=== PATIENT | male | born 1950 | race Caucasian/White ===

== ENCOUNTER → 2016-07-13 | Outpatient (CLI) | payer OTHER ==
--- NOTE | 2016-07-13 14:02 | DI ---
HISTORY: Catheter placement and constipation. COMPARISON: None available. FINDINGS: There is a catheter projected over the right hemipelvis. There is moderate constipation. There is no free air identified. There is a wire project over the thoracoabdominal junction. IMPRESSION: 1. There is a catheter projected over the right hemipelvis. 2. Moderate constipation. 3. There is a wire project over the thoracoabdominal junction.
== END ==
LOC: RAD 13:12
PROVIDERS: ATTEND Internal Medicine Nephrology
DX: K59.00 Constipation, unspecified (principal); Z49.02 Encounter for fitting and adjustment of peritoneal dialysis catheter
CPT/HCPCS: 74000

== ENCOUNTER → 2016-11-26 | Outpatient (CLI) | payer OTHER ==
[2016-11-26 16:10] LABS: HEMATOCRIT 35.9 % (42.0-52.0); HEMOGLOBIN 12.3 g/dL (14.0-18.0); MEAN CORPUSCULAR HGB CONC 34.3 g/dL (33-37); MEAN CORPUSCULAR VOLUME 84.7 FL (80-90); RED BLOOD COUNT 4.24 10^6/uL (4.70-6.10)
[2016-11-26 16:24] LABS: BUN/CREATININE RATIO 6.03 (6-20); CALCIUM 9.9 mg/dL (8.7-10.7); SERUM ALBUMIN 4.1 g/dL (3.5-4.8)
--- NOTE | 2016-11-26 17:58 | DI ---
XR CXR 2VW PA/LAT,11/26/2016 2:42 PM: Clinical History: Abnormal lung sounds. Previous Exam: November 18, 2012 Findings: PA and lateral views of the chest are obtained, and demonstrate clear lungs. The cardiomediastinum an d bony thorax are unremarkable except for sternotomy wires. There is no infiltrate nor effusion. Impression: No acute cardiopulmonary disease.
== END ==
LOC: MOB RAD 14:44
PROVIDERS: ATTEND Family Medicine
DX: R09.89 Other specified symptoms and signs involving the circulatory and respiratory systems (principal); R05 Cough; N18.6 End stage renal disease; R53.1 Weakness; E03.9 Hypothyroidism, unspecified
CPT/HCPCS: 36415; 71020; 80053; 84443; 85027

== ENCOUNTER → 2017-01-08 | Outpatient (CLI) | payer OTHER ==
[2017-01-08 10:24] LABS: BUN/CREATININE RATIO 7.5 (6-20); SERUM ALBUMIN 4.1 g/dL (3.5-4.8)
== END ==
LOC: MOB LAB 09:46
PROVIDERS: ATTEND Family Medicine
DX: N18.6 End stage renal disease (principal); Z99.2 Dependence on renal dialysis
CPT/HCPCS: 36415; 80053

== ENCOUNTER 2017-01-10 12:15 | Emergency (ER) | payer OTHER ==
[2017-01-10] MEDS ORDERED: NORMAL SALINE 10 ML SYRINGE FLUSH IVP PRN (12:34)
[2017-01-10] MEDS ORDERED: Sodium Chloride 0.9% 1,000 ML PRIMARY IV ONE (12:34)
--- NOTE | 2017-01-10 13:17 | EKG ---
[address] [address] Measurements Intervals [place] Rate: 57 P: 130 ID: [id number] QRS: -13 QRSD: 92 T: 150 QT: 445 QTc: 439 Interpretive Statements SINUS BRADYCARDIA, POSSIBLE ECTOPIC ATRIAL RHYTHM POSSIBLE LATERAL MYOCARDIAL INFARCTION OF INDETERMINATE AGE PRIOR ANTEROSEPTAL CO LEFT ATRIAL ENLARGEMENT Compared to ECG 11/19/2012 05:07:34 Sinus rhythm no longer present Myocardial infarct finding still present Electronically Signed On 01-12-17 15:26:17 MDT by Gabriel Everett [email or web address]
[2017-01-10 13:30] VITALS: RESP 18; TEMP 97.4
[2017-01-10 13:34] LABS: BASOPHILS # (AUTO) 0.03 10*3/UL; BASOPHILS % (AUTO) 0.5 % (0-1); EOSINOPHILS # (AUTO) 0.14 10*3/UL; EOSINOPHILS % (AUTO) 2.2 % (0-8); HEMOGLOBIN 11.4 g/dL (14.0-18.0); MEAN CORPUSCULAR HEMOGLOBIN 29.5 PG (27-31); MEAN CORPUSCULAR HGB CONC 34.5 g/dL (33-37); MEAN CORPUSCULAR VOLUME 85.3 FL (80-90); MEAN PLATELET VOLUME 10.2 FL (7.4-12.2); MONOCYTES # (AUTO) 0.41 10*3/UL (0.3-0.8); MONOCYTES % (AUTO) 6.3 % (5-15); NEUTROPHILS # (AUTO) 5.11 10*3/UL; NEUTROPHILS % (AUTO) 78.5 % (50-80); RED BLOOD COUNT 3.87 10^6/uL (4.70-6.10)
[2017-01-10 13:38] LABS: PLATELET MORPHOLOGY COMMENT NORMAL MORPHOLOGY (NORM); RBC MORPHOLOGY COMMENT NORMAL MORPHOLOGY (NORM); WBC MORPHOLOGY COMMENT NORMAL MORPHOLOGY (NORM)
[2017-01-10 13:48] LABS: BUN/CREATININE RATIO 8.24 (6-20); C-REACTIVE PROTEIN 0.5 mg/dL (0.0-0.9); CALCIUM 8.5 mg/dL (8.7-10.7); MAGNESIUM 2.3 mg/dL (1.6-2.4); SERUM ALBUMIN 3.6 g/dL (3.5-4.8)
[2017-01-10 13:51] LABS: VENOUS PH 7.39 (7.32-7.42)
[2017-01-10 13:55] LABS: SALICYLATE < 1.0 mg/dl (0-20)
--- NOTE | 2017-01-10 13:55 | PDOC ---
General Adult HPI - General Chief Complaint: General Medical Stated Complaint: SLEEPY LAST 2 DAYS Date Seen by Provider: 01/10/17 Time Seen by Provider: 13:10 Source: POSITIVE: Patient, Other () Exam Limitations: POSITIVE: No limitations Nurse's Notes Reviewed & Considered: Yes - History of Present Illness Initial Comment: The patient is a 66-year-old male who presents to the emergency department with increased sleepiness. Apparently for the past couple of days he states he has no energy and has been sleeping most of the time. His oral intake has also been diminished. He does have a history of chronic renal failure and is on peritoneal dialysis. In addition he does have a history of coronary artery disease and diabetes. He reports that his blood sugars have been running fairly normal. He did recently start on trazodone (possibly within the last week) which was started secondary to problems with insomnia. He denies any current headache, chest pain, numbness or focalized weakness in his extremities , urinary symptoms or any other associated complaints. He has not had any fevers or chills and denies any increased abdominal pain. He did have some blood work drawn 2 days ago and has not received the results of this yet. Have you received a tetanus shot in the past 10 years?: Yes - Patient Home Medications Home Medications: Home Medications Acetaminophen [Tylenol Extra Strength] 2 mg PO QHS tab 11/26/16 Amlodipine Besylate 1 tab PO DAILY tab 11/26/16 Calcitriol [Rocaltrol] 0.25 mcg PO 2XW cap 11/26/16 Calcium Carbonate [Tums] 1 tab PO QD tab 11/26/16 Glipizide [Glipizide Er] 2.5 mg PO QD tab 11/26/16 Levothyroxine Sodium 1 tab PO QAM tab 11/26/16 Losartan Potassium 1 tab PO QAM tab 11/26/16 Pravastatin Sodium [Pravachol] 1 tab PO DAILY tab 11/26/16 Sodium Bicarbonate 650 mg PO BID tab 11/26/16 Aspirin [Aspir 81] 81 mg PO DAILY 01/10/17 Clopidogrel [Plavix] 75 mg PO DAILY 01/10/17 Docusate Sodium 100 mg PO DAILY 01/10/17 Doxazosin Mesylate 2 mg PO DAILY 01/10/17 Furosemide 80 mg PO DAILY 01/10/17 Magnesium Oxide [Magnesium] 400 mg PO DAILY 01/10/17 Melatonin 5 mg PO DAILY 01/10/17 Polyethylene Glycol 3350 [Miralax] 255 gm PO DAILY 01/10/17 Ropinirole HCl [Requip] 0.25 mg PO DAILY 01/10/17 Sucroferric Oxyhydroxide [Velphoro] 500 mg PO DAILY 01/10/17 Trazodone HCl 50 mg PO DAILY 01/10/17 - Patient Allergies Allergies/Adverse Reactions: Allergies Allergy/AdvReac Type Severity Reaction Status Date / Time Penicillins Allergy Mild RASH Verified 01/10/17 12:24 Past Medical History - heen HEENT History: Denies History Cardiovascular History: Previous MT, Hyperlipidemia Respiratory History: Denies History Gastrointestinal History: Denies History Genitourinary History: Dialysis Additional Genitourinary History: AT HOME Endocrine History: Type 2 Diabetes (oral) Musculoskeletal History: Denies History Prosthesis or Implant: No Neurological History: Denies History Blood Disorders: Denies History Psychiatric History: Denies History History of Sexually Transmitted Diseases: No Cancer History: Denies History In Past Year Been Physically Harmed or Verbally Threatened: No History of MDRO: No History of Other Communicable Diseases: No Tobacco Use: Never Smoker Alcohol Use: None Substance Use Type: None Previous Surgical History: Yes Type / Date of Surgery: ING HERNIA, ohs, cataract, CABG, STENT, Anesthesia Reactions: No Significant Family History: No pertinent family hx Past Medical History Reviewed: Reviewed - No Changes ROS - Limitations ROS Limitations: No Limitations Constitution: DENIES: Chills, Fever Cardiovascular: DENIES: Chest Pain Respiratory: REPORTS: Shortness Of Breath (Chronic however worse with his current fatigue) Neurological: REPORTS: Confusion (He states he feels like he is processing things slower), Weakness (Generalized weakness, no focal weakness). DENIES: Headache, Numbness Gastrointestinal: DENIES: Abdominal Pain, Nausea, Vomitting, Diarrhea Musculoskeletal: DENIES: Lower Extremity Swelling, Muscle Aches Genitourinary: REPORTS: Denies Symptoms Eyes: REPORTS: Denies Symptoms ENT: REPORTS: Denies Symptoms Skin: DENIES: Rash General Adult Exam - General Appearance General Appearance: POSITIVE: Cooperative, No Acute Distress, Other (The patient is awake and answers questions appropriately, no acute distress) - HEENT HEENT: POSITIVE: Head Inspection Nml, Eyes Inspection Nml, Ears Inspection Nml, Pharynx Inspect. Nml, PERRL, EOMI, Dry Mucous Membranes - Neck Neck: POSITIVE: Normal Inspection. NEGATIVE: Lymphadenopathy - Respiratory Respiratory: POSITIVE: No Respiratory Distress, Breath Sounds Normal - Cardiovascular Cardiovascular: POSITIVE: Regular Rate & Rhythm, No Murmur Peripheral Pulses: Dorsalis-pedis (R): 2+, Dorsalis-pedis (L): 2+ - Abdomen Abdomen: Soft: (All Quadrants), Denies Tenderness: (All Quadrants), No Distention: (All Quadrants) - Skin Skin: POSITIVE: Normal Color, No Rash - Extremities Extremity: Normal ROM: (All Extremities), Normal Inspection: (All Extremities) - Neurological / Psychological Neurological: POSITIVE: Oriented X3, cable mechanic Normal As Tested, Motor Normal, Sensation Normal, Other (No focal neurologic deficits) General Adult Progress - Results Reviewed by me Xrays/CTs/US Reviewed by me: Yes Discussed with Radiologist: Yes Radiology Findings: CT scan of his head is normal per radiologist. Lab Results Reviewed: Yes Lab Results:: Laboratory Results 01/10/17 01/10/17 Range/Units 13:25 13:29 WBC 6.50 (4.8-10.8) 10^3/uL RBC 3.87 L (4.70-6.10) 10^6/uL Hgb 11.4 L (14.0-18.0) g/dL Hct 33.0 L (42.0-52.0) % MCV 85.3 (80-90) FL MCH 29.5 (27-31) PG MCHC 34.5 (33-37) g/dL RDW Std Deviation 45.1 (39-50) fL RDW Coeff of Kanwal 14.9 H (11.5-14.5) % Plt Count 189 (140-350) 10*3/uL MPV 10.2 (7.4-12.2) FL Immature Gran % (Auto) 0.2 (0-5) % Neut % (Auto) 78.5 (50-80) % Lymph % (Auto) 12.3 (10-50) % [place] % (Auto) 6.3 (5-15) % Eos % (Auto) 2.2 (0-8) % Baso % (Auto) 0.5 (0-1) % Immature Gran # (Auto) 0.01 10*3/UL Neut # (Auto) 5.11 10*3/UL Lymph # (Auto) 0.80 10*3/uL [place] # (Auto) 0.41 (0.3-0.8) 10*3/UL Eos # (Auto) 0.14 10*3/UL Baso # (Auto) 0.03 10*3/UL WBC Morphology Comment Normal morphology (NORM) Plt Morphology Comment Normal morphology (NORM) RBC Morph Comment Normal morphology (NORM) VBG pH 7.39 (7.32-7.42) VBG pCO2 37 L (45-55) mmHg VBG HCO3 23 (22-26) mmol/L VBG Base Excess -2 (-2-2) MMOL/L Sodium 133 L (135-145) meq/L Potassium 4.8 (3.8-5.2) meq/L Chloride 93 L (98-112) meq/L Carbon Dioxide 23 (23-33) meq/L Anion Gap 17 (5-20) BUN 89 H (7-22) mg/dL Creatinine 10.8 H (0.70-1.50) mg/dL Estimated GFR 5 (>60 ml/min/1.73m(2)) BUN/Creatinine Ratio 8.24 (6-20) Glucose 104 (78-110) mg/dL Calculated Osmolality 302.0 H (267-292) mOsm/kg Calcium 8.5 L (8.7-10.7) mg/dL Phosphorus 9.6 H (2.4-4.3) mg/dl Magnesium 2.3 (1.6-2.4) mg/dL Total Bilirubin 0.5 (0.3-1.2) mg/dL AST 8 L (21-57) IU/L ALT 28 (21-72) IU/L Alkaline Phosphatase 50 (38-126) IU/L Troponin I 0.014 (< 0.040) ng/mL C-Reactive Protein 0.5 (0.0-0.9) mg/dL Total Protein 5.9 L (6.1-8.0) g/dL Albumin 3.6 (3.5-4.8) g/dL Globulin 2.3 L (2.50-4.10) g/dL Albumin/Globulin Ratio 1.50 (1.3-2.0) mg/g Salicylates < 1.0 (0-20) mg/dl Acetaminophen < 10.0 (0-30) ug/mL Serum Alcohol < 10 (0-10) mg/dL EKG Interpreted/Reviewed By Me:: Yes EKG Interpretation:: POSITIVE: Normal Sinus Rhythm, Normal Rate, Normal QRS, Normal ST/T - Patient's Progress MDM / ED Course: The patient's vital signs were all stable on arrival. His head CT is normal per radiologist. His lab work reveals mild anemia, elevated creatinine at 10 which is his baseline recently, phosphorus is elevated at 9. The remainder of his blood work is essentially unremarkable. I did discuss the patient with Dr. Liu who is on-call for nephrology. He thought that the increased tiredness may be related to her recent initiation with trazodone. He recommended discontinuing of this medication. He stated his office would follow-up with the patient later this week. The patient is advised return to the emergency room if any worsening or change in symptoms. - Consult Counseled: POSITIVE: Patient, Family, RE: Lab Results, RE: Radiology Results, RE : DX, RE: Need for F/U Patient Care Time - Estimated PCT Patient Care Time (In Minutes): 35 Vital Signs - Recent Vital Signs Vital Signs: Vital Signs (Last 8 hours) Temp Pulse Resp BP Pulse Ox 01/10/17 13:09 97.4 F 63 18 109/76 94 - VS Reviewed Vital Signs Reviewed: Yes Discharge Clinical Impression: Fatigue, Chronic renal failure Discharge Disposition: Discharged to Home Condition: Stable Patient Instructions Given at Discharge: Fatigue (ED) Additional Instructions: Your blood work done today showed some mild anemia, the chronic renal failure with a creatinine of 10 which is similar to previous level, normal potassium with elevated phosphorus. There was no other obvious explanation for your current fatigue. I did discuss current findings with Dr. Liu. He thought that this most likely is being caused by the trazodone and recommended discontinuation. Recommend returning to the emergency room if he develops any worsening or change in symptoms. Dr. Liu's office will follow up with you this week. Follow Up With: CASSIA MUNGUIA [Primary Care Provider] -
--- NOTE | 2017-01-10 14:11 | DI ---
HISTORY: Confusion with sleeplessness and weakness. COMPARISON: None available. TECHNIQUE: Contiguous axial unenhanced images of the brain were obtained from the skull base through the vertex. The images were then submitted for interpretation. FINDINGS: There is no evidence of an acute intracranial hemorrhage. No extra-axial fluid collection identified. Normal benson-white matter differentiation is seen. There is no mass or evidence of mass effect. CSF spaces are clear. Paranasal sinuses demonstrate no abnormality. Orbits are normal. IMPRESSION: 1. No CT evidence of acute intracranial abnormality.
== END 2017-01-10 14:35 | disposition home or self-care (01) ==
LOC: ER 12:15
DX: R53.83 Other fatigue (principal); N18.9 Chronic kidney disease, unspecified; I25.10 Atherosclerotic heart disease of native coronary artery without angina pectoris; E11.9 Type 2 diabetes mellitus without complications; E78.5 Hyperlipidemia, unspecified; I25.2 Old myocardial infarction
CPT/HCPCS: 36415; 70450; 80053; 80320; 80329; 82803; 82948; 83735; 84100; 84484; 85025; 86140; 93005; 93010; 99284; J7030

== ENCOUNTER → 2017-01-15 | Outpatient (CLI) | payer OTHER | LOC: MMPC 09:00 | PROVIDERS: ATTEND Family Medicine | DX: F51.05 Insomnia due to other mental disorder (principal); N18.6 End stage renal disease; K59.04 Chronic idiopathic constipation | CPT/HCPCS: 99214; G0463 ==

== ENCOUNTER → 2017-02-04 | Outpatient (CLI) | payer OTHER | LOC: MMPC 11:11 | PROVIDERS: ATTEND Surgery | DX: Z86.010 Personal history of colon polyps (principal); N18.6 End stage renal disease; Z95.5 Presence of coronary angioplasty implant and graft | CPT/HCPCS: 99203; G0463 ==